=== PATIENT | female | born 1990 | race Caucasian/White ===

== ENCOUNTER 2016-12-16 18:46 | Inpatient (IN) | payer OTHER ==
[~2016-12-16] VITALS: Ht 157.5 cm; Wt 99.8 kg
--- NOTE | ~2016-12-16 | DS ---
Unit #: [id number] #: [id number] Patient: MORENA SMILEY [id number] [facility] [address] [place] [address] [id number] MR#: [id number] NAME: MORENA SMILEY ROOM: [facility] Age: 26 Sex: F Admission Date: 12/16/2016 : 1990 Discharge Date: 12/19/2016 Attending Physician: Kevin Bernabe M.D. Primary Care Physician: No Primary Care Physician DISCHARGE SUMMARY REASON FOR ADMISSION The patient is a 26-year-old white female admitted voicing positive suicidal ideation following an altercation with her . HOSPITAL COURSE The patient was admitted to the [facility] unit and placed on suicidal precaution. She was continued on prescribed medications of Abilify 2 mg daily was added in hopes of addressing the patient's mood, instability and bipolar depression. She tolerated the medication well and showed brightening of mood and affect. Unfortunately she felt as though her marriage was not a salvageable one at the time of discharge, but had made arrangements to stay with her parents. As per her request discharge was ordered on 12/19/2016. FINAL DIAGNOSIS Bipolar disorder, most recent episode depressed, part in relational problem. DISPOSITION ON DISCHARGE Patient is discharge on the following medications. DISCHARGE MEDICATIONS 1. Abilify 2 mg daily for mood stabilization. 2. Glucophage 500 mg once daily for polycystic ovarian syndrome. 3. Zestril 10 mg once daily for hypertension. 4. Oretic 12.5 mg once daily for hypertension. 5. Desyrel 100 mg daily as p.r.n. insomnia. 6. Trileptal 300 mg daily for mood stabilization. 7. Motrin 800 mg every 8 hours for p.r.n. pain. DISCHARGE INSTRUCTIONS No dietary or physical restriction of the patient at the time of discharge. She will follow through the auspices of [facility] for resources in the [place], [place] area. PROGNOSIS Considered fair. Dictated by... Kevin Bernabe M.D. CB/jessie Unit #: [id number] #: [id number] Patient: MORENA SMILEY TD: 12/22/2016 08:55 JOB #: [id number] DISCHARGE SUMMARY Page 1 of 1 X Kevin Bernabe MD DISCHARGE SUMMARY
--- NOTE | ~2016-12-16 | HP ---
Unit #: [id number] #: [id number] Patient: MORENA SMILEY [id number] [place] [address] [id number] MR#: [id number] NAME: MORENA SMILEY ROOM: [facility] Age: 26 Sex: F Admission Date: 12/16/2016 : 1990 Attending Physician: Kevin Bernabe M.D. Admitting Physician: Kevin Bernabe M.D. Primary Care Physician: Primary Care Physician No HISTORY AND PHYSICAL HISTORY OF PRESENT ILLNESS Morena is a 26 year old admitted to [address] [place] [address] with depression and verbalizing wanting to hurt herself. PAST MEDICAL HISTORY 1. Morbid obesity. 2. Asthma. 3. Diabetes mellitus. 4. High blood pressure. PAST SURGICAL HISTORY T & A. ALLERGIES Hydrocodone. SOCIAL HISTORY Dips less than a can of snuff on a daily basis. Denies alcohol and illicit drug use. FAMILY HISTORY Medically noncontributory. REVIEW OF SYSTEMS CONSTITUTIONAL: No fever or chills. HEENT: Denies any sore throat, ear pain or runny nose. CARDIOVASCULAR: Denies chest pain, irregular heart rhythm or palpitations. CHEST: Denies shortness of breath or cough. No hemoptysis. GASTROINTESTINAL: Denies nausea, vomiting, diarrhea or chronic constipation. ENDOCRINE: Denies history of increased thirst or urination. No recent significant weight loss or gain. GENITOURINARY: Denies dysuria, frequency, or hematuria. SKIN: Denies any rashes. HEMATOLOGIC: Denies history of increased bleeding or bruising. MUSCULOSKELETAL: Denies any hot, swollen joints. No generalized muscle pain. NEUROLOGIC: Denies problems with vision or speech. No frequent, severe headaches. No numbness, tingling or weakness in any extremities. Denies loss of bladder or bowel control. CURRENT MEDICATIONS Unit #: [id number] #: [id number] Patient: MORENA SMILEY 1. Desyrel 100 mg q.h.s. 2. Trileptal 300 mg b.i.d. 3. Ibuprofen p.r.n. 4. HYDROCHLOROTHIAZIDE 12.5 mg daily 5. Zestril 10 mg q day 6. Glucophage 500 mg q day 7. Abilify 2 mg q.a.m. 8. Milk of Magnesia p.r.n. 9. Maalox p.r.n. 10. Tylenol p.r.n. PHYSICAL EXAMINATION GENERAL: Alert, morbidly obese, in no apparent distress. VITAL SIGNS: Blood pressure 136/90, heart rate 80, respirations 16, temperature 98.6. WEIGHT: 220 pounds. HEIGHT: 5'2". SKIN: Warm and dry without rash or lesion. HEENT: Normocephalic. TMs not viewed. Oral and nasal passages clear. Conjunctivae clear. Pupils equal, round and reactive to light and accommodation. Extraocular movements intact. NECK: Supple without lymphadenopathy or thyromegaly. HEART: Regular rate and rhythm without murmur. LUNGS: Clear. ABDOMEN: Soft, nontender. : Not done. EXTREMITIES: No evidence of cyanosis, clubbing or edema. Moves all extremities without focal deficit. NEUROLOGICAL: Grossly within normal limits. Cranial Nerves: II: Visual delcid are intact. III, IV AND : Extraocular movements are intact. Pupils are equal, round and reactive to light. V: Facial sensation is grossly normal. VII: Facial movements and expression are normal. VIII: Auditory acuity grossly intact. IX, X: Uvula is midline. Phonation is normal. XI: Patient shrugs shoulders and turns head normally. XII: Tongue protrudes in the midline. Sensory and Motor Function: Sensory and motor sensation is grossly normal. Motor: moves all extremities well. Coordination: Gait is normal. Deep Tendon Reflexes: Intact. IMPRESSION Psychiatric admission RECOMMENDATIONS PSYCHIATRIC: Per psychiatrist. MEDICAL: 1. I see no contraindications to participating in facility's activities. 2. Continue HCTZ, Zestril and Glucophage. Check a BMP. MEDICAL PROGNOSIS Good. MEDICAL CONDITION Stable. Unit #: [id number] #: [id number] Patient: MORENA SMILEY Dictated by... Isabella Au P.A.-C. for Puma Bosch/liset TD: 12/17/2016 21:29 JOB #: [id number] HISTORY AND PHYSICAL Page 1 of 1 X Isabella Au X HISTORY AND PHYSICAL
--- NOTE | ~2016-12-16 | PA ---
Unit #: [id number] #: [id number] Patient: MORENA SMILEY [id number] [place] [address] [id number] MR#: [id number] NAME: MORENA SMILEY ROOM: [facility] Age: 26 Sex: F Admission Date: 12/16/2016 : 1990 Date of Assessment: 12/17/2016 Attending Physician: Kevin Bernabe M.D. Admitting Physician: Kevin Bernabe M.D. Primary Care Physician: Primary Care Physician No PSYCHIATRIC ASSESSMENT IDENTIFYING INFORMATION The patient is a 26-year-old white female admitted to the [address] [place] [address] Unit after presenting to [facility] voicing positive suicidal ideation. CHIEF COMPLAINT None given. INFORMANT(S) Patient and chart, reliability good. HISTORY OF PRESENT ILLNESS The patient is a 26-year-old white female admitted to the [address] [place] [address] Unit in transfer from [facility]. She presented to that facility after she had quarreled with her , and he had threatened to seek a divorce. The patient reported suicidal ideation with plan to shoot herself and reported access to a gun. The patient reports that she has been increasingly depressed related to her marital situation. The patient has been diagnosed with bipolar spectrum disorder in the past per her report, and recently had a "medication change" where she feels may have contributed to her symptoms. When seen today, the patient is notably dysphoric and continues to endorse positive suicidal ideation. She reports variable sleep but denies any loss of appetite. The patient reports a history of previous psychiatric hospitalization at [facility]. She does not recall the names of medications which have been prescribed to her in the past. PAST PSYCHIATRIC HISTORY As above. PAST MEDICAL HISTORY The patient is morbidly obese. She suffers from hypertension, polyovarian cystic disease, and chronic pain. MEDICATIONS 1. Metformin. 2. Lisinopril. 3. HCTZ. 4. Trazodone. 5. Trileptal. 6. Ibuprofen. ALLERGIES Unit #: [id number] #: [id number] Patient: MORENA SMILEY Hydrocodone. FAMILY HISTORY The patient reports an extensive family history of psychiatric illness. SOCIAL HISTORY The patient completed high school. She presently lives with her of 5 years. They had no children. 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 MENTAL STATUS EXAMINATION Examination at this time reveals the patient to be a morbidly obese white female appearing her stated age. She is in no apparent physical distress at the time of examination. She is awake, alert, and oriented in all spheres. Her mood is dysphoric, her affect blunted. Speech is generally well coherent. There are no gross deficits in memory or cognition noted. Intelligence is judged to be in the average range based on fund of knowledge. The patient is cooperative throughout the interview. She is currently endorsing positive suicidal ideation. She denies homicidal ideation. She denies any psychotic symptoms. Her judgment and insight appear to be intact. ASSETS AND LIABILITIES The patient's assets: Motivation for change. Liabilities: Lack of resources. DIAGNOSTIC IMPRESSION 1. Bipolar disorder depressed phase. 2. Polycystic ovarian syndrome. 3. Gastroesophageal reflux disease. 4. Hypertension. 5. Morbid obesity. TREATMENT PLAN The patient remains hospitalized for safety and stabilization. I will seem old records from [facility], and we will begin the patient on a trial of Abilify 2 mg daily in hopes of addressing her symptoms of bipolar depression. ESTIMATED LENGTH OF STAY 5 to 7 days. Dictated by... Kevin Bernabe M.D. Gregg TD: 12/17/2016 12:48 JOB #: [id number] Unit #: [id number] #: [id number] Patient: MORENA SMILEY PSYCHIATRIC ASSESSMENT Page 1 of 1 X Kevin Bernabe MD X PSYCHIATRIC ASSESSMENT
--- NOTE | ~2016-12-16 | PN ---
Unit #: [id number] #: [id number] Patient: MORENA SMILEY [id number] [facility] [address] [place] [address] [id number] MR#: [id number] NAME: MORENA SMILEY ROOM: [facility] Age: 26 Sex: F Admission Date: 12/16/2016 : 1990 Attending Physician: Kevin Bernabe M.D. Admitting Physician: Kevin Bernabe M.D. Primary Care Physician: Primary Care Physician Anahi BENITEZ PROGRESS NOTES DATE 12/18/2016 DISCUSSION The patient is active within therapeutic milieu and appears to be brighter today. She is reporting reduction in suicidal ideation. She reports that she has been in contact with her , but their conversation was a "frosty one." I have spoken with the patient regarding post-discharge treatment options including intensive outpatient programming. Dictated by... Kevin Bernabe M.D. CB/bzg TD: 12/18/2016 14:10 JOB #: [id number] [facility] PROGRESS NOTES Page 1 of 1 X Kevin Bernabe MD PROGRESS NOTE
== END 2016-12-19 17:05 | disposition home or self-care (01) | DRG 885 ==
LOC: P2L 21:23
DX: F31.9 Bipolar disorder, unspecified (principal); Z68.41 Body mass index [BMI] 40.0-44.9, adult; I10 Essential (primary) hypertension; E66.01 Morbid (severe) obesity due to excess calories; E28.2 Polycystic ovarian syndrome; K21.9 Gastro-esophageal reflux disease without esophagitis; F17.220 Nicotine dependence, chewing tobacco, uncomplicated; J45.909 Unspecified asthma, uncomplicated; E11.9 Type 2 diabetes mellitus without complications; Z79.84 Long term (current) use of oral hypoglycemic drugs